=== PATIENT | male | born 1945 | race Caucasian/White ===

== ENCOUNTER 2021-06-05 10:33 | Day surgery (SDC) | payer OTHER, SELFPAY ==
[~2021-06-05] VITALS: Ht 170.2 cm; Wt 88.5 kg
[~2021-06-05 10:33] MED LIST: CEFAZOLIN 2 GM IVPB PREMIX 50 ML IV ONE
[2021-06-05] MEDS ORDERED: BUPIVACAINE LIPOSOME/PF 266 MG/20 ML VIAL INFIL ONE (12:14)
[2021-06-05] MEDS ORDERED: DEXAMETHASONE SOD PHOSPHATE 4 MG/ML VIAL IVP ONE (12:33)
[2021-06-05] MEDS ORDERED: SUGAMMADEX SODIUM 200 MG/2 ML VIAL IV ONE (12:33)
[2021-06-05] MEDS ORDERED: LR 1,000 ML IV.SOLN IV ONE (12:33)
[2021-06-05] MEDS ORDERED: ONDANSETRON HCL 4 MG/2 ML VIAL IVP ONE (12:33)
[2021-06-05] MEDS ORDERED: BUPIVACAINE /PF 0.25% 30 ML VIAL INJ ONE (12:33)
[2021-06-05] MEDS ORDERED: GLYCOPYRROLATE 0.2 MG/ML VIAL IJ ONE (12:33)
[2021-06-05] MEDS ORDERED: NS IRRIG SOLN 1000 ML IR ONE (12:33)
[2021-06-05] MEDS ORDERED: DESFLURANE 15 MIN GAS INH ONE (12:33)
[2021-06-05] MEDS ORDERED: fentaNYL CITRATE 250 MCG/5 ML AMP IV ONE (12:33)
[2021-06-05] MEDS ORDERED: WATER FOR IRRIGATION,STERILE 1,000 ML IRRIG.SOLN IR ONE (12:33)
[2021-06-05] MEDS ORDERED: MIDAZOLAM HCL 5 MG/5 ML VIAL IVP ONE (12:33)
[2021-06-05] MEDS ORDERED: ROCURONIUM BROMIDE 10 MG/ML (ZEMURON) IV ONE (12:33)
[2021-06-05] MEDS ORDERED: PROPOFOL 200MG/ 20ML VIAL (DIPRIVAN) IV ONE (12:33)
[2021-06-05] MEDS ORDERED: MEPERIDINE HCL/PF 25 MG/ML DISP.SYRIN IVP PRN (13:30)
[2021-06-05] MEDS ORDERED: HYDROmorphone 1 MG/ML INJ. CARTRIDGE IVP PRN ×2 (13:30)
[2021-06-05] MEDS ORDERED: METOCLOPRAMIDE HCL 10 MG/2 ML VIAL IVP PRN (13:30)
[2021-06-05] MEDS ORDERED: LR 1,000 ML IV SCH (13:30)
[2021-06-05] MEDS ORDERED: hydrALAZINE HCL 20 MG/ML VIAL IVP PRN (13:30)
[2021-06-05 17:00] VITALS: BP_SYST 125
== END 2021-06-05 16:40 | disposition home or self-care (01) ==
LOC: SDS 10:33 → SMU 10:34 → SDS 16:40
PROVIDERS: ATTEND Surgery
DX: K43.2 Incisional hernia without obstruction or gangrene (principal); I10 Essential (primary) hypertension; Z20.822 Contact with and (suspected) exposure to COVID-19; Z79.899 Other long term (current) drug therapy
CPT/HCPCS: 36415; 49560; 49568; 87426; 88302; C1781; C9290; J0690; J1100; J2250; J2405; J2704; J3010; J3490 ×3; J7120; U0003

== ENCOUNTER 2023-09-23 06:07 | Inpatient (IN) | payer OTHER ==
[2023-09-22 20:00] VITALS: O2SAT 95
[~2023-09-23] VITALS: Ht 170.2 cm; Wt 88.0 kg
[2023-09-23] MEDS: CELECOXIB 100 MG CAPSULE ONE (06:32)
[2023-09-23] MEDS: ACETAMINOPHEN 500 MG TABLET ONE (06:32)
[2023-09-23] MEDS: SCOPOLAMINE HYDROBROMIDE 1 MG PATCH .72 H (TRANSDERM-SCOP) TD ONE ×2 (06:34→06:35)
[2023-09-23] MEDS: GABAPENTIN 300 MG CAPSULE ONE (06:35)
[2023-09-23] MEDS: CELECOXIB 100 MG CAPSULE PO ONE (06:35)
[2023-09-23] MEDS: ACETAMINOPHEN 500 MG TABLET PO ONE (06:35)
[2023-09-23] MEDS: oxyCODONE HCL 10 MG TAB.ER.12H PO ONE ×2 (06:35→07:11)
[2023-09-23] MEDS: GABAPENTIN 300 MG CAPSULE PO ONE (06:35)
[2023-09-23] MEDS: CEFAZOLIN SOD 2 GM in D5W 50 ML IV ONE (06:45)
[2023-09-23] MEDS ORDERED: BISACODYL 10 MG/SUPPOSITORY RC PRN (07:00)
[2023-09-23] MEDS ORDERED: DIPHENHYDRAMINE HCL 25 MG CAPSULE PO PRN (07:00)
[2023-09-23] MEDS ORDERED: METOCLOPRAMIDE HCL 10 MG/2 ML VIAL IVP PRN ×2 (07:00→08:15)
[2023-09-23] MEDS ORDERED: LACTULOSE 20 GM/30 ML UDC PO PRN (07:00)
[2023-09-23] MEDS ORDERED: NALOXONE HCL 0.4 MG/ML AMP (NARCAN) IVP PRN ×3 (07:00)
[2023-09-23] MEDS ORDERED: DEXAMETHASONE SOD PHOSPHATE 4 MG/ML VIAL ONE (07:05)
[2023-09-23] MEDS ORDERED: MEPERIDINE HCL/PF 25 MG/ML DISP.SYRIN IVP PRN (08:15)
[2023-09-23] MEDS ORDERED: LABETALOL 100 MG/ 20ML VIAL IVP PRN (08:15)
[2023-09-23] MEDS: LR 1,000 ML IV SCH (08:15)
[2023-09-23] MEDS ORDERED: HYDROmorphone 1 MG/ML INJ. CARTRIDGE IVP PRN ×5 (08:15→11:00)
[2023-09-23] MEDS ORDERED: hydrALAZINE HCL 20 MG/ML VIAL IVP PRN (08:15)
[2023-09-23] MEDS ORDERED: oxyCODONE HCL 5 MG TABLET PO PRN (11:00)
[2023-09-23] MEDS ORDERED: LORATADINE 10 MG TABLET PO PRN (11:00)
[2023-09-23] MEDS ORDERED: traMADol HCL HCL 50 MG TABLET (ULTRAM) PO PRN (11:00)
[2023-09-23] MEDS ORDERED: SIMV-343 PO (11:38)
[2023-09-23] MEDS ORDERED: LISI20TA30 PO (11:38)
[2023-09-23 11:45] VITALS: BP_SYST 145; PULSE 54; RESP 18; TEMP 98.6; O2SAT 98
[2023-09-23] MEDS ORDERED: ONDANSETRON HCL 4 MG/2 ML VIAL IVP PRN (11:45)
[2023-09-23 11:55] VITALS: O2SAT 94
[2023-09-23 13:32] VITALS: BP_SYST 145; PULSE 54; RESP 18; TEMP 96.8
[2023-09-23] MEDS: oxyCODONE HCL 5 MG TABLET PO PRN (13:42)
[2023-09-23] MEDS: ACETAMINOPHEN 500 MG TABLET PO SCH (14:00)
[2023-09-23 16:00] VITALS: BP_SYST 147; PULSE 60; RESP 17; TEMP 96.9; O2SAT 97
[2023-09-23] MEDS: KETOROLAC TROMETHAMINE 10 MG TABLET (TORADOL) PO SCH (18:21)
[2023-09-23] MEDS: ceFAZolin SODIUM 2 GM in D5W 100 ML IV SCH (18:22)
[2023-09-23 20:00] VITALS: BP_SYST 120; PULSE 72; RESP 20; TEMP 97.5; O2SAT 95
[2023-09-23] MEDS: SENNOSIDES/DOCUSATE SODIUM 1 TAB TABLET(SENOKOT-S) PO SCH (21:28)
[2023-09-24] VITALS: BP_SYST 105; PULSE 86; RESP 18; TEMP 97.4; O2SAT 94
[2023-09-24 05:55] LABS: ALANINE AMINOTRANSFERASE 4 U/L (12-78); ALBUMIN 2.9 g/dL (3.4-4.8); ANION GAP 10 (5-15); ASPARTATE AMINOTRANSFERASE 22 U/L (10-37); BASOPHILS % (AUTO) 0.1 % (0.0-2.0); CALCIUM 8.9 mg/dL (8.4-11.0); CARBON DIOXIDE 26 mmol/L (23-29); CHLORIDE 105 mmol/L (98-107); CREATININE 1.04 mg/dL (0.55-1.30); GLUCOSE 136 mg/dL (74-106); HEMATOCRIT 35.6 % (36-54); HEMOGLOBIN 12.2 g/dL (14.0-18.0); LYMPHOCYTES # (AUTO) 0.9 K/uL (1.0-5.5); LYMPHOCYTES % (AUTO) 8.8 % (20.5-51.5); MEAN CORPUSCULAR HEMOGLOBIN 31 pg (27-31); MEAN CORPUSCULAR HGB CONC 34 % (32-36); MEAN CORPUSCULAR VOLUME 91 fL (79.0-98.0); MONOCYTES % (AUTO) 9.9 % (1.7-9.3); NEUTROPHILS # (AUTO) 8.5 K/uL (1.8-7.7); NEUTROPHILS % (AUTO) 81.2 % (40.0-70.0); PLATELET COUNT (AUTO) 181 K/uL (130-430); POTASSIUM 4.3 mmol/L (3.5-5.1); RED BLOOD CELL COUNT(AUTO) 3.92 MIL/uL (4.2-6.2); RED CELL DISTRIBUTION WIDTH 14.2 % (9.0-15.0); SODIUM SERUM 141 mmol/L (136-145); TOTAL BILIRUBIN 0.5 mg/dL (0.0-1.0); TOTAL PROTEIN, SERUM 5.9 g/dL (6.4-8.3); UREA NITROGEN, BLOOD 15 mg/dL (8-21); WHITE BLOOD COUNT (AUTO) 10.5 K/uL (4.8-10.8)
[2023-09-24 07:54] VITALS: BP_SYST 126; PULSE 55; RESP 18; TEMP 97.6; O2SAT 96
[2023-09-24] MEDS: ASPIRIN 81 MG TAB.CHEW PO SCH (08:27)
[2023-09-24] MEDS: CELECOXIB 200 MG CAPSULE PO SCH (08:28)
[2023-09-24] MEDS: DECADRON 4 MG TABLET PO SCH (08:28)
== END 2023-09-24 10:45 | disposition home health service (06) | DRG 470 ==
LOC: SMU 06:07 → STU 11:15
PROVIDERS: ADMIT Student in an Organized Health Care Education/Training Program; ATTEND Student in an Organized Health Care Education/Training Program
PROC: 0SR904Z Replacement of Right Hip Joint with Ceramic on Polyethylene Synthetic Substitute, Open Approach (ICD-10-PCS; principal; 2023-09-23 07:16)
DX: M16.11 Unilateral primary osteoarthritis, right hip (principal); I10 Essential (primary) hypertension; Z96.611 Presence of right artificial shoulder joint; Z96.651 Presence of right artificial knee joint; Z79.899 Other long term (current) drug therapy; Z85.46 Personal history of malignant neoplasm of prostate; Z79.82 Long term (current) use of aspirin
CPT/HCPCS: 36415; 72170-TC; 76000; 80053; 85025; 87081; 88304; 88311; 96379; 97110-GP; 97116-GP; 97530-GP; A4649; C1713; C1776; G0378; J0690; J1100; J2370; J2405; J2704; J3010; J3370; J3465; J3490; J7060; J7120; J8540